=== PATIENT | female | born 1970 | race Caucasian/White ===

== ENCOUNTER 2016-09-11 12:16 | Emergency (ER) | payer SELFPAY ==
[2016-09-11 13:04] LABS: Bilirubin Negative (Negative); Blood, Urine Trace (Negative); Glucose, Urine (Dipstick) Negative (Negative); Ketone, Urine Negative (Negative); Nitrite Negative (Negative); Protein, Urine (Dipstick) Negative (Neg-Trace); Urobilinogen 0.2 mg/dL (0.2-1.0)
[2016-09-11 13:20] LABS: Bacteria/HPF 1+ HPF (None Seen); Renal Epithelial None Seen HPF (0-3); Squamous Epithelial 0-3 HPF (0-3); Transitional Epithelial NONE SEEN HPF (0-3); WBC/HPF 0-3 HPF (0-3); Yeast-All Forms None Seen HPF (None Seen)
[2016-09-11 13:21] LABS: Hyaline Casts/LPF NONE SEEN LPF (0-3 Hyaline); Oval Fat Bodies/HPF None Seen HPF (None Seen); Sperm/HPF None Seen HPF (None Seen); Trichomonas/HPF Rare HPF (None Seen)
[2016-09-11] MEDS ORDERED: HYDROcodone/Acetaminophen 5/325 mg Tablet ONE (13:29)
[2016-09-11] MEDS ORDERED: Ibuprofen 800 MG TAB ONE (13:29)
--- NOTE | 2016-09-11 14:35 | ERRECORD ---
[facility] EMERGENCY RECORD PAST MEDICAL HISTORY (12:26 KMOR) MEDICAL HISTORY: No past medical history, Flu vaccine not up to date, Tetanus immunization up to date, Pneumococcal vaccine not up to date. FEMALE SURGICAL HISTORY: Surgical history of tubal ligation. PSYCHIATRIC HISTORY: No previous psychiatric history. SOCIAL HISTORY: Patient drinks socially, every week, Patient denies drug use, Patient currently uses tobacco, smokes cigarettes, daily, vapors. KNOWN ALLERGIES Penicillins: Reaction: Anaphylaxis CURRENT MEDICATIONS (12:24 KMOR) None VITAL SIGNS VITAL SIGNS: BP: 131/88, Pulse: 75, Resp: 18, Temp: 98.6 (Oral), Pain: 8, O2 sat: 97 on Room Air, Time: 09/11/2016 12:25. (12:25 KMOR) BP: 152/99, Pulse: 88, Resp: 18, Temp: 98.8, Pain: 2, O2 sat: 100 on ra, Time: 09/11/2016 14:13. (14:13 KMOR) RADIOLOGYINTERPRETATION (13:58 JPIP) BACK: Lumbar spine films show, degenerative joint disease, Other findings: mild anterior spurring. MEDICATION ADMINISTRATION SUMMARY Drug Name: [place], Dose Ordered: 5 mg, Route: Oral, Status: Given, Time: 13:33 09/11/2016, Drug Name: Motrin, Dose Ordered: 800 mg, Route: Oral, Status: Given, Time: 13:31 09/11/2016, Detailed record available in Medication Service section. DOCTOR NOTES TEXT: patient has requested a half dose of the [place]. tab was cut in half. (13:32 JPIP) Discussed findings with patient, mild DJD of the L spine, UA + Trichomonas. Advised her that her partner needs to be treated. (13:54 JPIP) PROBLEM LIST No recorded problems DIAGNOSIS (13:58 JPIP) FINAL: PRIMARY: Low back pain, ADDITIONAL: TRICHOMONAL VULVOVAGINITIS. PRESCRIPTION (13:56 JPIP) &a-1R&a+25V*p+0X*t6381X*c202B*c15G*c2P*p-0X&a-25V&a+1R Name: Ameena Geovanna D : 1970 F46 MedRec: [id number] AcctNum: [id number] Prepared: Nilsa Sep 11, 2016 14:15 by Interface Page 1 of 2 pMD [facility] EMERGENCY RECORD diclofenac oral: TABLET, DELAYED RELEASE (ENTERIC COATED) : 75 mg : ORAL : Quantity: 1 Unit: tab(s) Route: ORAL Schedule: 2 times a day (with meals) Dispense: 30 May substitute. Refills: No Refills . NOTES: as needed for pain No refills. metroNIDAZOLE oral: TABLET : 500 mg : ORAL : Quantity: 1 Unit: tab(s) Route: ORAL Schedule: every 12 hours Dispense: 20 May substitute. Refills: No Refills . NOTES: take with food No refills. Soma: TABLET : 350 mg : ORAL : Quantity: 1 Unit: tab(s) Route: ORAL Schedule: once a day (at bedtime) Dispense: 10 May substitute. Refills: No Refills . NOTES: Muscle relaxant No refills. Ultram: TABLET : 50 mg : ORAL : Quantity: 1-2 Unit: tab(s) Route: ORAL Schedule: every 8 hours PRN Dispense: 30 May substitute. Refills: No Refills . NOTES: for pain No refills. DISPOSITION PATIENT: Disposition Type: Discharge, Disposition: *Discharge Home, Condition: Good. (13:58 JPIP) Patient left the department. (14:11 KMOR) Zuluaga: RAFFI=DO Johnston Joseph KMOR=Cristian RN, Gaby &a-1R&a+25V*p+0X*a4614R*c202B*c15G*c2P*p-0X&a-25V&a+1R Name: Geovanna Lindquist : 1970 F46 MedRec: [id number] AcctNum: [id number] Prepared: Nilsa Sep 11, 2016 14:15 by Interface Page 2 of 2 pMD MTDD
--- NOTE | 2016-09-11 14:42 | PICIS ---
[facility] EMERGENCY RECORD TRIAGE (ThuSep 11, 2016 12:24 KMOR) TRIAGE NOTES: Low back pain for 2 weeks, worse in the mornings. Unable to work due to pain. (ThuSep 11, 2016 12:24 KMOR) PATIENT: NAME: Geovanna Lindquist, AGE: 46, GENDER: female, : Thu1970, TIME OF GREET: ThuSep 11, 2016 12:16, PREFERRED LANGUAGE: Grenadian, ETHNICITY: Not or , ECODE BILLING MAP: [facility], SSN: [id number], KG WEIGHT: 78.02, PHONE: , , , PERSON ID: [id number], PAYMENT: [employer] Self Pay, PCP: NONE. (ThuSep 11, 2016 12:24 KMOR) Zip Code: [id number]. (13:00) COMPLAINT: Low Back Pain. (ThuSep 11, 2016 12:24 KMOR) ADMISSION: URGENCY: 4 Non Urgent, ADMISSION SOURCE: Home, TRANSPORT: CAR, BED: WAIT. (ThuSep 11, 2016 12:24 KMOR) ASSESSMENT: Assessment: A&OX4. RR EVNE AND UNLABORED., Symptoms began greater than 1 week ago. (12:26 KMOR) PAIN: Patient complains of pain described as, aching, on a scale 0-10 patient rates pain as 7, Location LOW BACK RIGHT SIDE. (12:26 KMOR) IMMUNIZATIONS: Flu vaccine not up to date, Tetanus not up to date, Pneumococcal vaccine not up to date. (12:26 KMOR) SIRS SCORING: Heart Rate 55-109 (0), Temp range 96.8-101.1 (0), respiratory rate 12-24 (0), Mental Status altered: no (0), Infection or Suspected Infection: No. (12:26 KMOR) TRIAGE SCREENING: Patient denies suicidal ideation, Patient denies presence of domestic violence. (12:26 KMOR) LMP: LMP: Menopause. (12:26 KMOR) PROVIDERS: TRIAGE NURSE: Gaby Foster RN. (Nilsa Sep 11, 2016 12:24 KMOR) VITAL SIGNS: BP 131/88, Pulse 75, Resp 18, Temp 98.6, (Oral), Pain 8, O2 Sat 97, on Room Air, Time 09/11/2016 12:25. (12:25 KMOR) PREVIOUS VISIT ALLERGIES: Penicillins. (ThuSep 11, 2016 12:24 KMOR) Penicillins. (12:26 KMOR) KNOWN ALLERGIES Penicillins: Reaction: Anaphylaxis CURRENT MEDICATIONS (12:24 KMOR) None VITAL SIGNS VITAL SIGNS: BP: 131/88, Pulse: 75, Resp: 18, Temp: 98.6 (Oral), Pain: 8, O2 sat: 97 on Room Air, Time: 09/11/2016 12:25. (12:25 KMOR) BP: 152/99, Pulse: 88, Resp: 18, Temp: 98.8, Pain: 2, O2 sat: 100 on ra, Time: 09/11/2016 14:13. (14:13 KMOR) NURSING ASSESSMENT: BACK (12:56 KMOR) &a-1R&a+25V*p+0X*b1370V*c202B*c15G*c2P*p-0X&a-25V&a+1R Name: Geovanna Lindquist Michael : 1970 F46 MedRec: [id number] AcctNum: [id number] Prepared: ThuSep 11, 2016 14:21 by Interface Page 1 of 6 pMD [facility] EMERGENCY RECORD CONSTITUTIONAL: Patient arrives ambulatory, Gait steady, History obtained from patient, Patient appears comfortable, Patient cooperative, Patient alert, Oriented to person, place and time, Skin warm, Skin dry, Skin normal in color, Mucous membranes pink, Mucous membranes moist, Patient is well-groomed, Patient complains of Low back pain, Patient reports low back pain x 2 weeks, reports worse in the morning, reports interfering with work. No incontinence reported, no numbness or tingling. PAIN: aching pain, to the lower back, to the right flank, on a scale 0-10 patient rates pain as 8. BACK: Back assessment findings include tenderness to, the left lower back, the right lower back, no paresthesias to extremities, no weakness to extremities, no incontinence of bowel or bladder, Right radial pulse +3(easily palpated, considered normal), Left radial pulse +3(easily palpated, considered normal). NECK: Neck assessment findings include trachea midline, no jugular vein distention noted. NOTES: Patient tolerated procedure well. NURSING PROCEDURE: DISCHARGE NOTE (14:13 KMOR) DISCHARGE: Patient discharged to home, ambulating without assistance, family driving, accompanied by other family member, Summary of Care printed/ provided, Transition record given to patient, Discharge instructions given to patient, Simple or moderate discharge teaching performed, by PAVLE Griffin, Discharge instructions and follow up reviewed with patient. Pt ambulatory to discharge desk., Prescriptions given and instructions on side effects given, Name of prescription(s) given: diclofenac, metronidazole, soma, ultram, Above person(s) verbalized understanding of discharge instructions and follow-up care, Patient instructed not to drive home. BELONGINGS: Belongings remain with patient, Valuables remain with patient. VITAL SIGNS: BP: 152, / 99, Pulse: 88, Resp: 18, Temp: 98.8, Pain: 2, O2 sat: 100, on: ra, Time: 1400. NURSING PROCEDURE: TRANSPORT TO TESTS (13:36 KMOR) PATIENT IDENTIFIER: Patient actively involved in identification process, Patient's identity verified by patient stating name, Patient's identity verified by patient stating date. TRANSPORT TO TESTS: Transport indicated to facilitate diagnosis, Patient transported to x-ray, via wheelchair, Accompanied by x-ray surveying or spatial science technician. NURSING PROCEDURE: URINE COLLECTION (12:55 KMOR) PATIENT IDENTIFIER: Patient actively involved in identification process, Patient's identity verified by patient stating name, Patient's identity verified by patient stating date. &a-1R&a+25V*p+0X*j7698I*c202B*c15G*c2P*p-0X&a-25V&a+1R Name: Ameena Geovanna Michael : 1970 F46 MedRec: [id number] AcctNum: [id number] Prepared: ThuSep 11, 2016 14:21 by Interface Page 2 of 6 pMD [facility] EMERGENCY RECORD URINE COLLECTION FEMALE: Urine collected by mid-stream clean catch, Output amount (mL) 150ml, urine ray in color, and clear, Specimen labeled in the presence of the patient and sent to lab. ORDER DETAILS Order Name: Urinalysis w/ Rflx Microscopic, Status: Active, Time: 12:53 09/11/2016, User: RAFFI, - Ordered for: DO Johnston Joseph, - Entered by: DO Johnston Joseph - [facility] Sep 11, 2016 12:53, - Quantity: 1, Order Name: XR Lumbar Spine 2 Or 3 View, Status: Active, Time: 13:26 09/11/2016, User: RAFFI, - Ordered for: DO Johnston Joseph, - Entered by: DO Johnston Joseph - [facility] Sep 11, 2016 13:26, - Quantity: 1. MEDICATION ADMINISTRATION SUMMARY Drug Name: C[place], Dose Ordered: 5 mg, Route: Oral, Status: Given, Time: 13:33 09/11/2016, Drug Name: Motrin, Dose Ordered: 800 mg, Route: Oral, Status: Given, Time: 13:31 09/11/2016, Detailed record available in Medication Service section. MEDICATION SERVICE Motrin: Order: Motrin (ibuprofen) - Dose: 800 mg : Oral Schedule: Now Ordered by: Frandy Johnston DO Entered by: Frandy Johnston DO [facility] Sep 11, 2016 13:25 , Acknowledged by: Gaby Foster RN [facility] Sep 11, 2016 13:28 Documented as given by: Gaby Foster RN [facility] Sep 11, 2016 13:31 Patient, Medication, Dose, Route and Time verified prior to administration. Amount given: 800mg, Site: Medication administered P.O., Correct patient, time, route, dose and medication confirmed prior to administration, Patient advised of actions and side-effects prior to administration, Allergies confirmed and medications reviewed prior to administration, Patient in position of comfort, Side rails up, Cart in lowest position, Family at bedside. : Follow Up : Response assessment performed, No signs or symptoms of allergic reaction noted. (14:00 KMOR) Custer: Order: Custer (hydrocodone bitartrate/acetaminophen) - Dose: 5 mg : Oral Schedule: Now Ordered by: Frandy Johnston DO Entered by: Frandy Johnston DO [facility] Sep 11, 2016 13:25 Documented as given by: Gaby Foster RN [facility] Sep 11, 2016 13:33 &a-1R&a+25V*p+0X*f4234U*c202B*c15G*c2P*p-0X&a-25V&a+1R Name: Geovanna Lindquist : 1970 F46 MedRec: [id number] AcctNum: [id number] Prepared: ThuSep 11, 2016 14:21 by Interface Page 3 of 6 pMD [facility] EMERGENCY RECORD Patient, Medication, Dose, Route and Time verified prior to administration. Amount given: 0.5 tab, Amount wasted: 0.5tab, Site: Medication administered P.O., Patient appears Awake and alert- acceptable, Correct patient, time, route, dose and medication confirmed prior to administration, Patient advised of actions and side-effects prior to administration, Allergies confirmed and medications reviewed prior to administration, Patient in position of comfort, Side rails up, Cart in lowest position, Family at bedside, per patient request .5 tab of Custer administered due to patient history of nausea and vomiting with pain medications. Dr. Johnston made aware and approved for tab to be split in half. Pill cutter used and .5 tab wasted prior to administration. : Follow Up : Response assessment performed, No signs or symptoms of allergic reaction noted. (14:00 KMOR) PAST MEDICAL HISTORY (12:26 KMOR) MEDICAL HISTORY: No past medical history, Flu vaccine not up to date, Tetanus immunization up to date, Pneumococcal vaccine not up to date. FEMALE SURGICAL HISTORY: Surgical history of tubal ligation. PSYCHIATRIC HISTORY: No previous psychiatric history. SOCIAL HISTORY: Patient drinks socially, every week, Patient denies drug use, Patient currently uses tobacco, smokes cigarettes, daily, vapors. LAB INTERPRETATION (13:58 JPIP) INTERPRETATION: I reviewed the lab results, All labs normal except as noted below, Urinalysis abnormal, positive for erythrocytes, trichomonas. EVENTS TRANSFER: Triage to Emergency Waiting. (Nilsa Sep 11, 2016 12:24 KMOR) Emergency Waiting to Emergency Room -04. (12:47 KMOR) Removed from Emergency Emergency Room -04. (14:11 KMOR) RADIOLOGYINTERPRETATION (13:58 JPIP) BACK: Lumbar spine films show, degenerative joint disease, Other findings: mild anterior spurring. O2SAT INTERPRETATION (14:00 JPIP) O2SAT: Single pulse oximetry, Oxygen saturation 97%, on room air, Oxygen saturation interpretation: Normal, No intervention required. DOCTOR NOTES TEXT: patient has requested a half dose of the C[place]. tab was cut in half. (13:32 JPIP) Discussed findings with patient, mild DJD of the L spine, UA + &a-1R&a+25V*p+0X*y4651C*c202B*c15G*c2P*p-0X&a-25V&a+1R Name: Geovanna Lindquist : 1970 F46 MedRec: [id number] AcctNum: [id number] Prepared: Nilsa Sep 11, 2016 14:21 by Interface Page 4 of 6 pMD [facility] EMERGENCY RECORD Trichomonas. Advised her that her partner needs to be treated. (13:54 JPIP) PROBLEM LIST No recorded problems DIAGNOSIS (13:58 JPIP) FINAL: PRIMARY: Low back pain, ADDITIONAL: TRICHOMONAL VULVOVAGINITIS. DISPOSITION PATIENT: Disposition Type: Discharge, Disposition: *Discharge Home, Condition: Good. (13:58 JPIP) Patient left the department. (14:11 KMOR) INSTRUCTION (13:57 JPIP) DISCHARGE: LOW BACK PAIN GENERAL, TRICHOMONAS VAGINITIS. SPECIAL: Follow up with Primary Care Physician within 72 hours Do not take motrin/ibuprofen/alleve/naprosyn while taking the diclofenac Return to the Emergency Department for increased symptoms problems or concerns Your sexual partner needs to also be treated. Practice safe sex. PRESCRIPTION (13:56 JPIP) diclofenac oral: TABLET, DELAYED RELEASE (ENTERIC COATED) : 75 mg : ORAL : Quantity: 1 Unit: tab(s) Route: ORAL Schedule: 2 times a day (with meals) Dispense: 30 May substitute. Refills: No Refills . NOTES: as needed for pain No refills. metroNIDAZOLE oral: TABLET : 500 mg : ORAL : Quantity: 1 Unit: tab(s) Route: ORAL Schedule: every 12 hours Dispense: 20 May substitute. Refills: No Refills . NOTES: take with food No refills. Soma: TABLET : 350 mg : ORAL : Quantity: 1 Unit: tab(s) Route: ORAL Schedule: once a day (at bedtime) Dispense: 10 May substitute. Refills: No Refills . NOTES: Muscle relaxant No refills. Ultram: TABLET : 50 mg : ORAL : Quantity: 1-2 Unit: tab(s) Route: ORAL Schedule: every 8 hours PRN Dispense: 30 May substitute. Refills: No Refills . NOTES: for pain No refills. IMAGING &a-1R&a+25V*p+0X*k6759V*c202B*c15G*c2P*p-0X&a-25V&a+1R Name: Geovanna Lindquist : 1970 F46 MedRec: [id number] AcctNum: [id number] Prepared: ThuSep 11, 2016 14:21 by Interface Page 5 of 6 pMD [facility] EMERGENCY RECORD *DISCHARGE INSTRUCTIONS RECEIPT: Image captured from scanner. (14:14 KMOR) *SUPPLY CHARGE SHEET: Image captured from scanner. (14:15 KMOR) ADMIN (14:18 KMOR) DIGITAL SIGNATURE: PAVEL Foster, Gaby. RESULTS (13:25 JPIP) LABORATORY: Urine Microscopic Collection DT: ThuSep 11, 2016 13:00, RBC/HPF 4-6 HPF, Range (0-3), WBC/HPF 0-3 HPF, Range (0-3), Squamous Epithelial 0-3 HPF, Range (0-3), Transitional Epithelial NONE SEEN HPF, Range (0-3), Renal Epithelial None Seen HPF, Range (0-3), *Bacteria/HPF 1+ - H HPF, Range (None Seen), Yeast-All Forms None Seen HPF, Range (None Seen), *Trichomonas/HPF Rare - H HPF, Range (None Seen), Oval Fat Bodies/HPF None Seen HPF, Range (None Seen), Sperm/HPF None Seen HPF, Range (None Seen), Hyaline Casts/LPF NONE SEEN LPF, Range (0-3 Hyaline). Urinalysis w/ Rflx Microscopic Collection DT: ThuSep 11, 2016 13:00, Color Yellow , Range (Yellow), Clarity Clear , Range (Clear), Specific [place], Urine 1.035 , Range (1.002-1.036), pH, Urine 5.5 , Range (5.0-9.0), Leukocyte Negative , Range (Negative), Nitrite Negative , Range (Negative), Protein, Urine (Dipstick) Negative mg/dL, Range (Neg-Trace), Glucose, Urine (Dipstick) Negative mg/dL, Range (Negative), Ketone, Urine Negative mg/dL, Range (Negative), Urobilinogen 0.2 mg/dL, Range (0.2-1.0), Bilirubin Negative , Range (Negative), *Blood, Urine Trace - H , Range (Negative). Zuluaga: RAFFI=DO Johnston Joseph KMOR=PAVEL Foster, Gaby &a-1R&a+25V*p+0X*m5505H*c202B*c15G*c2P*p-0X&a-25V&a+1R Name: Geovanna Lindquist : 1970 F46 MedRec: [id number] AcctNum: [id number] Prepared: Nilsa Sep 11, 2016 14:21 by Interface Page 6 of 6 pMD MTDD
--- NOTE | 2016-09-11 20:39 | RAD ---
LUMBAR SPINE THREE VIEWS 09/11/16 No fracture, dislocation or acute bony change was seen. There may be some very minor disc space narr owing at L2-L3 and L4-L5. Prominent Schmorl's nodes are seen in T10 through T12 superior end plates. There is a very minimal amount of anterior bony spurring at some levels. The SI joints were symmetr ical. IMPRESSION: No acute findings. Equivocal slight disc narrowing at L2-L3 and L4-L5. POS: HOME
== END 2016-09-11 14:07 | disposition home or self-care (01) ==
LOC: BURERS 12:16
DX: M54.5 Low back pain (principal); A59.01 Trichomonal vulvovaginitis; F17.210 Nicotine dependence, cigarettes, uncomplicated
CPT/HCPCS: 72100; 81003; 81015; 99283

== ENCOUNTER 2016-10-08 07:44 | Emergency (ER) | payer SELFPAY ==
[2016-10-08] MEDS ORDERED: Cyclobenzaprine 10 MG TAB ONE (08:10)
== END 2016-10-08 08:41 | disposition home or self-care (01) ==
LOC: BURERS 07:44
DX: M54.41 Lumbago with sciatica, right side (principal); F17.210 Nicotine dependence, cigarettes, uncomplicated
CPT/HCPCS: 99283

== ENCOUNTER 2017-02-03 13:24 | Emergency (ER) | payer OTHER, SELFPAY ==
[2017-02-03] MEDS ORDERED: Ketorolac Tromethamine 60 MG/2 ML VIAL ONE (13:33)
[2017-02-03] MEDS ORDERED: Diazepam 5 MG TAB ONE ×2 (13:33→13:49)
--- NOTE | 2017-02-03 15:06 | CT ---
CT LUMBAR SPINE NONCONTRAST: Date: 02/03/17 HISTORY: Low back pain. FINDINGS: Vertebral body heights and alignment are maintained. Mild osteophytosis is present throughout the fa cets. Mild posterior disc bulge is present at the L3-4 and L4-5 levels without significant central c anal stenosis. There is mild stenosis of each neural foramen at the L4-5 level. No acute fracture or dislocation are apparent. IMPRESSION: Mild degenerative changes of the lower lumbar spine. No evidence of compression fracture. POS: [facility]
== END 2017-02-03 15:34 | disposition short-term general hospital (02) ==
LOC: BURERS 13:24
DX: M54.5 Low back pain (principal); F17.210 Nicotine dependence, cigarettes, uncomplicated
CPT/HCPCS: 72131; 96374; J1885

== ENCOUNTER 2017-03-30 20:36 | Emergency (ER) | payer SELFPAY ==
[2017-03-30] MEDS ORDERED: Sulfameth/Trimethoprim DS 800-160mg TAB ONE (20:49)
== END 2017-03-30 21:00 | disposition home or self-care (01) ==
LOC: BURERS 20:36
DX: S70.361A Insect bite (nonvenomous), right thigh, initial encounter (principal); F17.210 Nicotine dependence, cigarettes, uncomplicated; Z79.899 Other long term (current) drug therapy; W57.XXXA Bitten or stung by nonvenomous insect and other nonvenomous arthropods, initial encounter
CPT/HCPCS: 99282

== ENCOUNTER 2022-06-25 15:39 | Emergency (ER) | payer BC, SELFPAY ==
[2022-06-25 16:52] LABS: #Basophils 0.1 thou/uL (0.0-0.2); #Eosinphils 0.1 thou/uL (0.0-0.7); #Lymphocytes 2.5 thou/uL (1.20-3.40); #Monocytes 0.5 thou/uL (0.11-0.59); #Neutrophils 4.9 thou/uL (1.40-6.50); %Eosinophils 0.7 % (0.0-10.0); %Lymphocytes 30.9 % (21.0-51.0); %Monocytes 5.9 % (0.0-10.0); %Neutrophils 61.5 % (42.0-75.0); Hemoglobin 12.4 g/dL (12.0-16.0); Mean Corpuscular HGB CONC 32.6 g/dL (32.0-36.0); Mean Corpuscular Volume 98.1 fl (78.0-98.0); Mean Platelet Volume 7.4 fL (7.4-10.4); Platelet Count 265 10x3/uL (130-400); RBC Distribution Width 11.5 % (11.5-14.5); Red Blood Cell (RBC) Count 3.87 mill/uL (4.20-5.40)
[2022-06-25 17:01] LABS: Amphetamine Not Detected (NotDetected); Barbiturates Screen Not Detected (NotDetected); Benzodiazepine Screen Not Detected (NotDetected); Cocaine Metabolite Screen Not Detected (NotDetected); Medtox Control Line Valid? VALID (VALID); Methadone Not Detected (NotDetected); Methamphetamine Not Detected (NotDetected); Opiate Screen Not Detected (NotDetected); Oxycodone Screen Not Detected (NotDetected); Phencyclidine (PCP) Not Detected (NotDetected); THC/Cannabinoid Screen Detected (NotDetected); Tricyclic Screen Not Detected (NotDetected)
[2022-06-25 17:03] LABS: Bilirubin Negative (Negative); Blood, Urine Small (Negative); Clarity Clear (Clear); Glucose, Urine (Dipstick) Negative (Negative); Ketone, Urine Negative (Negative); Leukocyte Negative (Negative); Nitrite Negative (Negative); Protein, Urine (Dipstick) Negative (Neg-Trace); Urobilinogen 0.2 mg/dL (Less than 2)
[2022-06-25 17:04] LABS: Specific Gravity, Urine 1.015 (1.002-1.036)
[2022-06-25 17:07] LABS: ALT (SGPT) 15 U/L (8-55); AST (SGOT) 19 U/L (5-34); Albumin 4.4 g/dL (3.5-5.0); Alkaline Phosphatase 54 U/L (40-110); Anion Gap 15 mmol/L (10-20); BUN (Urea Nitrogen) 11 mg/dL (9.8-20.1); Bilirubin, Total 0.3 mg/dL (0.2-1.2); Calc. Creatinine Clearance 0 mL/min (70-130); Calcium 9.4 mg/dL (7.8-10.44); Carbon Dioxide 25 mmol/L (22-29); Chloride 101 mmol/L (98-107); Estimated GFR 105; Globulin 2.5 g/dL (2.4-3.5); Glucose 94 mg/dL (70-105); Potassium 3.6 mmol/L (3.5-5.1); Protein, Total 6.9 g/dL (6.0-8.3); RBC/HPF 0-3 HPF (0-3); Sodium 137 mmol/L (136-145); Squamous Epithelial None Seen HPF (0-3); WBC/HPF None Seen HPF (0-3)
[2022-06-25 17:08] LABS: Bacteria/HPF None Seen HPF (None Seen)
== END 2022-06-25 17:27 | disposition home or self-care (01) ==
LOC: BURERS 15:39
DX: R20.2 Paresthesia of skin (principal); F17.290 Nicotine dependence, other tobacco product, uncomplicated
CPT/HCPCS: 36415; 80053; 80306; 81003; 81015; 85025; 99284